=== PATIENT | female | born 1940 | race Native Hawaiian/Other Pacific Islander ===

== ENCOUNTER 2024-08-24 06:43 | Emergency (ER) | payer MEDICARE ==
[~2024-08-24] VITALS: Ht 172.7 cm; Wt 104.5 kg
[2024-08-24 06:44] VITALS: TEMP 97
[2024-08-24] MEDS ORDERED: CHOL100062 PO (07:50)
[2024-08-24] MEDS ORDERED: METO100T14 PO (07:50)
[2024-08-24] MEDS ORDERED: LOSA-382 PO (07:50)
[2024-08-24] MEDS ORDERED: ALEN70TA80 PO (07:50)
[2024-08-24] MEDS ORDERED: LOSA100T59 PO (07:50)
[2024-08-24 08:33] LABS: BASOPHILS % (AUTO) 0.4 % (0.0-2.0); EOSINOPHILS % (AUTO) 3.4 % (1.0-6.0); HEMOGLOBIN 12.8 g/dL (12.0-16.0); LYMPHOCYTES # (AUTO) 0.7 K/uL (1.0-4.8); LYMPHOCYTES % (AUTO) 18.2 % (22.0-44.0); MEAN CORPUSCULAR HEMOGLOBIN 29.4 pg (26.0-34.0); MEAN CORPUSCULAR HGB CONC 32.9 G/dL (31.0-37.0); MEAN CORPUSCULAR VOLUME 89 fL (80-100); MONOCYTES # (AUTO) 0.4 K/uL (0.1-1.0); MONOCYTES % (AUTO) 10.3 % (2.0-9.0); NEUTROPHILS # (AUTO) 2.4 K/uL (1.8-7.7); NEUTROPHILS % (AUTO) 67.7 % (40.0-70.0); PLATELET COUNT (AUTO) 175 K/uL (150-450); RED BLOOD CELL COUNT(AUTO) 4.36 MIL/uL (4.00-5.20); RED CELL DISTRIBUTION WIDTH 14.5 % (11.5-14.5); WHITE BLOOD COUNT (AUTO) 3.6 K/uL (4.5-11.0)
[2024-08-24 08:40] LABS: CALCIUM, TOTAL 9.1 mg/dL (8.8-10.5); CREATININE 1.14 mg/dL (0.60-1.30); MAGNESIUM 2.2 mg/dL (1.80-2.40)
[2024-08-24 08:53] LABS: COVID AG,FIA SOURCE NASAL SWAB
[2024-08-24] MEDS: KETOROLAC TROMETHAMINE 30 MG/ML VIAL IVP ONE ×2 (08:53)
[2024-08-24] MEDS: ACETAMINOPHEN 325 MG TABLET PO ONE (08:54)
[2024-08-24] MEDS ORDERED: KETOROLAC TROMETHAMINE 30 MG/ML VIAL IM ONE (09:00)
[2024-08-24 09:05] VITALS: BP 136/74; PULSE 56; RESP 17; O2SAT 96
[2024-08-24 09:05] LABS: TROPONIN I-HIGH SENSITIVITY 15 ng/L (<51)
[2024-08-24 09:19] LABS: SARS-COV2 (COVID) ANTIGEN,FIA Negative (Negative)
[2024-08-24 09:25] LABS: INFLUENZA TYPE A NEGATIVE FOR TYPE A (NEGATIVE); INFLUENZA TYPE B NEGATIVE FOR TYPE B (NEGATIVE)
== END 2024-08-24 10:38 | disposition home or self-care (01) ==
LOC: EMS 06:44
DX: M79.641 Pain in right hand (principal); M79.642 Pain in left hand; R06.02 Shortness of breath; M79.605 Pain in left leg; M79.604 Pain in right leg; M25.552 Pain in left hip; M25.551 Pain in right hip; I10 Essential (primary) hypertension; M19.90 Unspecified osteoarthritis, unspecified site; Z20.822 Contact with and (suspected) exposure to COVID-19
CPT/HCPCS: 99285; 96374; 71045; 87426; 80048; 83735; 83880; 84484; 85025; 87804; 36415; 93005; J1885